=== PATIENT | female | born 1945 | race Caucasian/White ===

== ENCOUNTER 2017-06-19 04:14 | Emergency (ER) | payer OTHER ==
[~2017-06-19] VITALS: Ht 162.6 cm; Wt 102.1 kg
[~2017-06-19 04:14] MED LIST: ALBUAER3 IN; AMIT50TA3 PO; CARI250T PO; CLOP75TA28 PO; EST0625T PO; FAM20T PO; HYDR1LIQ PO; IPRIH INH; LANS15CA21 PO; METH4PAK PO; NIFE60TA59 PO; NIFE60TA75 PO; NOR10T PO; PRED-188 PO
[2017-06-19 05:20] LABS: Basophils # (auto) 0.1 uL; Basophils % (auto) 0.9 % (0.0-2.0); CONDITION Y; Eosinophils # (auto) 0.3 uL; Eosinophils % (auto) 3.2 % (0.0-7.0); Hematocrit 37.3 % (36.0-46.0); Hemoglobin 12.1 g/dL (12.2-16.2); Lymphocytes # (auto) 2.5 uL; Lymphocytes % (auto) 23.3 % (10.0-50.0); Mean Corpuscular Hemoglobin 28.2 pg (28.0-32.0); Mean Corpuscular Hgb Conc. 32.3 g/dL (32.0-36.0); Mean Corpuscular Volume 87.2 fL (80.0-100.0); Mean Platelet Volume 7.8 fL (7.4-10.4); Monocytes # (auto) 0.9 uL; Neutrophils # (auto) 7.1 uL; Neutrophils % (auto) 64.6 % (37.0-80.0); Platelet Count (auto) 436 10^3/uL (140-450); Red Cell Distribution Width 16.2 % (11.6-16.0); White Blood Cell 10.9 10^3/uL (4.4-10.8)
[2017-06-19 05:33] LABS: Partial Thromboplastin Time 26.4 sec (22.64-33.71); Prothrombin Time 10.9 sec (9.37-12.3)
[2017-06-19 05:48] LABS: Anion Gap 10 (5-15); Blood Urea Nitrogen 15 mg/dL (7-18); Calcium 8.4 mg/dL (8.5-10.1); Carbon Dioxide 25 mmol/L (21-32); Chloride 106 mmol/L (98-107); Glucose 108 mg/dL (74-106); Potassium 3.4 mmol/L (3.5-5.1); Sodium 141 mmol/L (136-145)
[2017-06-19 05:49] LABS: Aspartate Aminotransferase 19 U/L (15-37); BUN/Creatinine Ratio 25.9; GFR African American 131 mL/min; GFR Non-African American 109 mL/min
[2017-06-19 05:54] LABS: Alkaline Phosphatase 173 U/L (45-117); Bilirubin, Total 0.2 mg/dL (0.2-1.0); Total Protein 7.6 g/dL (6.4-8.2)
[2017-06-19 06:19] LABS: B-Type Natriuretic Peptide 19.65 pg/mL (0-100)
[2017-06-19 06:25] LABS: Temperature: 22.7 C (20.0-25.0)
[2017-06-19 08:13] VITALS: BP 145/86
[2017-06-19] MEDS ORDERED: HYDROcodone-ACET 5/325MG TAB PO ONE (08:30)
[2017-06-19] MEDS ORDERED: IOHEXOL 350 MG/ML 100ML IJ ONE (08:59)
== END 2017-06-19 11:18 | disposition home or self-care (01) ==
LOC: ER 04:14 → EDBD 04:14 → ER 11:00
DX: J44.9 Chronic obstructive pulmonary disease, unspecified (principal); G89.29 Other chronic pain; M54.9 Dorsalgia, unspecified; M79.89 Other specified soft tissue disorders; R53.1 Weakness; I10 Essential (primary) hypertension; M19.90 Unspecified osteoarthritis, unspecified site; E07.9 Disorder of thyroid, unspecified; Z88.6 Allergy status to analgesic agent; Z88.1 Allergy status to other antibiotic agents; Z88.8 Allergy status to other drugs, medicaments and biological substances; Z79.899 Other long term (current) drug therapy; Z90.49 Acquired absence of other specified parts of digestive tract; Z90.710 Acquired absence of both cervix and uterus; Z87.891 Personal history of nicotine dependence
CPT/HCPCS: 36415; 71010; 71275; 73560; 80053; 83880; 84484; 85025; 85379; 85610; 85730; 93005; 99285; Q9967

== ENCOUNTER 2017-07-07 12:07 | Observation (INO) | payer OTHER ==
[~2017-07-07] VITALS: Ht 165.1 cm; Wt 104.3 kg
[~2017-07-07 12:07] MED LIST changes: -CARI250T PO; -HYDR1LIQ PO; -LANS15CA21 PO; -NIFE60TA75 PO; +NITR-48 PO; -NOR10T PO; +PERCOT PO; -PRED-188 PO; +[UNRECOGNIZED DRUG - CODE] IV
[2017-07-07 13:22] LABS: Basophils # (auto) 0.1 uL; Basophils % (auto) 0.5 % (0.0-2.0); Eosinophils # (auto) 0.2 uL; Eosinophils % (auto) 1.3 % (0.0-7.0); Hematocrit 37.8 % (36.0-46.0); Hemoglobin 12.2 g/dL (12.2-16.2); Lymphocytes % (auto) 21.5 % (10.0-50.0); Mean Corpuscular Hemoglobin 28.3 pg (28.0-32.0); Mean Corpuscular Hgb Conc. 32.2 g/dL (32.0-36.0); Mean Corpuscular Volume 87.9 fL (80.0-100.0); Mean Platelet Volume 6.9 fL (6.9-10.8); Monocytes # (auto) 1.8 uL; Monocytes % (auto) 9.4 % (0.0-12.0); Neutrophils # (auto) 12.6 uL; Neutrophils % (auto) 67.3 % (37.0-80.0); Nucleated Red Blood Cells % 0.1 %; Platelet Count (auto) 406 10^3/uL (140-450); Red Cell Distribution Width 15.9 % (11.8-14.3); White Blood Cell 18.7 10^3/uL (4.4-10.8)
[2017-07-07 13:36] LABS: INR 1.04 (0.9-1.15); Partial Thromboplastin Time 24.1 sec (22.64-33.71); Prothrombin Time 11.3 sec (9.37-12.3)
[2017-07-07 13:39] LABS: B-Type Natriuretic Peptide 51.5 pg/mL (0-100); Temperature: 21.1 C (20.0-25.0)
[2017-07-07 13:47] LABS: Albumin 2.8 g/dL (3.4-5.0); Alkaline Phosphatase 96 U/L (45-117); Anion Gap 7 (5-15); Aspartate Aminotransferase 12 U/L (15-37); BUN/Creatinine Ratio 34.9; Bilirubin, Total 0.3 mg/dL (0.2-1.0); Blood Urea Nitrogen 15 mg/dL (7-18); Calcium 7.9 mg/dL (8.5-10.1); Carbon Dioxide 32 mmol/L (21-32); Chloride 94 mmol/L (98-107); GFR African American 186 mL/min; GFR Non-African American 153 mL/min; Glucose 95 mg/dL (74-106); Magnesium 2.5 mg/dL (1.6-2.6); Potassium 3.7 mmol/L (3.5-5.1); Sodium 133 mmol/L (136-145); Total Protein 6.7 g/dL (6.4-8.2)
[2017-07-07] MEDS ORDERED: cefTRIAXone 1GM/50ML D5W 50 ML IV ONE (15:30)
[2017-07-07] MEDS ORDERED: HYDROcodone-ACET 10/325MG TAB PO ONE (16:30)
[2017-07-07 16:55] VITALS: BP 133/86
== END 2017-07-07 17:31 | DRG 91 ==
LOC: EDBD 12:07 → ER 12:07 → OVERFLOW 13:50 → ER 17:31
PROVIDERS: ADMIT Family Medicine; ATTEND Family Medicine
DX: R47.81 Slurred speech (principal); I63.9 Cerebral infarction, unspecified; I11.0 Hypertensive heart disease with heart failure; I50.9 Heart failure, unspecified; J18.1 Lobar pneumonia, unspecified organism; J44.0 Chronic obstructive pulmonary disease with (acute) lower respiratory infection; F41.9 Anxiety disorder, unspecified; Z83.3 Family history of diabetes mellitus; Z82.49 Family history of ischemic heart disease and other diseases of the circulatory system
CPT/HCPCS: 36415; 70450; 71010; 80053; 82962; 83605; 83735; 83880; 84484; 85025; 85610; 85730; 87040; 93005; 96365; 99285; G0378; J0696